=== PATIENT | female | born 1985 | race Caucasian/White ===

== ENCOUNTER 2020-10-16 14:25 | Emergency (ER) | payer OTHER, SELFPAY ==
[2020-10-16 14:27] VITALS: BP 143/94; PULSE 142; RESP 20; TEMP 38.1; O2SAT 96
[2020-10-16] MEDS: ACETAMINOPHEN 500 MG TABLET 1000 MG PO (15:10)
[2020-10-16 15:21] LABS: Add Urine Microscopic? YES; Appearance Urine Cloudy (Clear); Bacteria Urine 2+ /hpf; Bilirubin Urine Negative (Negative); Blood Urine 2+ (Negative); Color Urine Yellow (Yellow); Glucose Urine UA Negative (Negative); Ketones Urine 1+ mg/dL (Negative); Leukocyte Esterase Ur 2+ LEU/UL (Negative); Mucus Urine Heavy /lpf; Nitrate Urine Negative (Negative); Protein Urine 2+ mg/dL (Negative); RBC Urine >75 /hpf (0-2); Specific Grav Ur 1.021 (1.001-1.035); Squamous Epithelial Cell Urine Many /hpf (Few); Urobilinogen Urine Negative mg/dL (<2.0); WBC Clumps Urine Present /HPF; WBC Urine >75 /hpf
--- NOTE | 2020-10-16 16:00 | ED.GENADULT ---
HPI - General Adult General Chief complaint: Unspecified Stated complaint: chills Time Seen by Provider: 10/16/20 14:55 History of Present Illness HPI narrative: Patient is a 34-year-old female who presents ER with chills. Ongoing for last day. She went to get tested for Covid today and her test is currently pending. She has no runny nose/sore throat/productive cough. She does report that she has recently had some cloudy urine. Not particularly having urinary frequency urgency or dysuria. No flank pain. Denies chest pain or chest pressure. Related Data Allergies Allergy/AdvReac Type Severity Reaction Status Date / Time No Known Allergies Allergy Verified 10/16/20 14:30 Review of Systems Review of Systems: All systems reviewed & are unremarkable except as noted in HPI and below Constitutional: Constitutional: Reports chills and Reports fever(s) ENT: Denies nasal discharge, Denies sinus pressure and Denies sore throat Respiratory: Respiratory: Denies cough and Denies dyspnea Genitourinary: Genitourinary: Denies dysuria, Denies flank pain and Denies urinary urgency [facility] Past Medical History Medical History (Updated 10/16/20 @ 17:21 by Damián Gurrola MD) Chronic sinusitis Surgical History Surgical History (Updated 10/16/20 @ 17:20 by Damián Gurrola MD) H/O sinus surgery Hx of tonsillectomy Social History Social History (Updated 06/29/20 @ 16:57 by Anjali Blakely CMA) Smoking status: Never smoker Second hand tobacco smoke exposure: No Alcohol intake: current Substance use: never Substance use type: does not use Exam Narrative: Exam Narrative: GENERAL: Well-appearing, well-nourished, and in no acute distress. HEAD: Normocephalic, atraumatic. CHEST: Clear to auscultation. No respiratory distress. HEART: Tachycardic and regular. Normal peripheral pulses. EXTREMITIES: Normal range of motion. No edema. SKIN: Warm, dry, no rash. NEURO: Alert and oriented x3. PSYCH: Normal mood and affect. Course Course Emergency Course: IV antibiotics IV fluids given. Will treat with Keflex at home. Vital Signs Vital signs: Vital Signs Temperature 100.6 F H 10/16/20 14:27 Pulse Rate 142 H 10/16/20 14:27 Respiratory Rate 20 10/16/20 14:27 Blood Pressure 143/94 H 10/16/20 14:27 Pulse Oximetry 96 10/16/20 14:27 Temperature 100.6 F H 10/16/20 14:27 Pulse Rate 142 H 10/16/20 14:27 Respiratory Rate 20 10/16/20 14:27 Blood Pressure 143/94 H 10/16/20 14:27 Pulse Oximetry 96 10/16/20 14:27 Medical Decision Making Vital Signs Vital Signs: Vital Signs Temperature 100.6 F H 10/16/20 14:27 Pulse Rate 142 H 10/16/20 14:27 Respiratory Rate 20 10/16/20 14:27 Blood Pressure 143/94 H 10/16/20 14:27 Pulse Oximetry 96 10/16/20 14:27 Temperature 100.6 F H 10/16/20 14:27 Pulse Rate 142 H 10/16/20 14:27 Respiratory Rate 20 10/16/20 14:27 Blood Pressure 143/94 H 10/16/20 14:27 Pulse Oximetry 96 10/16/20 14:27 Lab Data Labs: Lab Results 10/16/20 Range/Units 15:08 Urine Color Yellow (Yellow) Urine Appearance Cloudy H (Clear) Urine pH 5.0 (5.0-9.0) Ur Specific [place] 1.021 (1.001-1.035) Urine Protein 2+ H (Negative) mg/dL Urine Glucose (UA) Negative (Negative) mg/dL Urine Ketones 1+ H (Negative) mg/dL Ur Blood (Man) 2+ H (Negative) Urine Nitrate Negative (Negative) Urine Bilirubin Negative (Negative) Urine Urobilinogen Negative (<2.0) mg/dL Leukocyte Esterase Rfl 2+ H (Negative) MABLE/UL Urine RBC >75 H (0-2) /hpf Urine WBC >75 H /hpf Urine WBC Clumps Present H (None) /HPF Ur Squamous Epith Cells Many H (Few) /hpf Urine Bacteria 2+ H /hpf Urine Mucus Heavy H /lpf UCG Bedside Result Negative Reference Range: Negative Discharge Plan Discharge Clinical Impression: UTI (urinary tract infection)
[2020-10-16] MEDS: SODIUM CHLORIDE 0.9% IV 1,000 ML 999 ML IV CONT (16:12)
[2020-10-16 17:44] VITALS: BP 140/80; PULSE 102; RESP 19; O2SAT 100
== END 2020-10-16 17:45 | disposition home or self-care (01) ==
PROVIDERS: Emergency Provider Emergency Medicine; PCP Family Medicine
DX: N39.0 Urinary tract infection, site not specified (principal)
CPT/HCPCS: 81001; 81025; 87077; 87086; 87088; 87186; 96365; 99284; A9270; J0696; J7030

== ENCOUNTER 2020-10-19 12:19 | Outpatient (CLI) | payer OTHER, SELFPAY ==
[2020-10-23 08:29] LABS: Progesterone 0.4 ng/mL (***)
== END 2020-10-19 12:20 | disposition home or self-care (01) ==
PROVIDERS: PCP Family Medicine; Visit Provider Obstetrics & Gynecology
DX: N97.9 Female infertility, unspecified (principal)
CPT/HCPCS: 36415; 84144

== ENCOUNTER 2021-01-10 14:42 | Outpatient (CLI) | payer OTHER, SELFPAY ==
[2021-01-13 13:54] LABS: Progesterone 5.8 ng/mL (***)
== END 2021-01-10 14:43 | disposition home or self-care (01) ==
LOC: ANHLAB 14:47
PROVIDERS: PCP Family Medicine; Visit Provider Advanced Practice Midwife
DX: N97.9 Female infertility, unspecified (principal)
CPT/HCPCS: 36415; 84144

== ENCOUNTER 2021-02-08 12:04 | Outpatient (CLI) | payer OTHER, SELFPAY ==
[2021-02-11 05:49] LABS: Progesterone 12.2 ng/mL (***)
== END 2021-02-08 12:05 | disposition home or self-care (01) ==
PROVIDERS: PCP Family Medicine; Visit Provider Advanced Practice Midwife
DX: N97.9 Female infertility, unspecified (principal)
CPT/HCPCS: 36415; 84144

== ENCOUNTER 2021-04-25 12:19 | Outpatient (CLI) | payer OTHER, SELFPAY ==
[2021-04-28 06:10] LABS: Progesterone 12.8 ng/mL (***)
== END 2021-04-25 12:20 | disposition home or self-care (01) ==
LOC: ANHLAB 12:21
PROVIDERS: PCP Family Medicine; Visit Provider Advanced Practice Midwife
DX: N97.9 Female infertility, unspecified (principal)
CPT/HCPCS: 36415; 84144

== ENCOUNTER 2021-05-24 12:19 | Outpatient (CLI) | payer OTHER, SELFPAY ==
[2021-05-27 06:14] LABS: Progesterone 15.5 ng/mL (***)
== END 2021-05-24 12:20 | disposition home or self-care (01) ==
LOC: ANHLAB 12:23
PROVIDERS: PCP Family Medicine; Visit Provider Advanced Practice Midwife
DX: N97.9 Female infertility, unspecified (principal)
CPT/HCPCS: 36415; 84144

== ENCOUNTER 2021-06-14 11:08 | Outpatient (RCR) | payer OTHER, SELFPAY | END 2021-09-12 23:59 | disposition home or self-care (01) | LOC: ANHLAB 11:08 | PROVIDERS: PCP Family Medicine; Visit Provider Advanced Practice Midwife | DX: N97.9 Female infertility, unspecified (principal) | CPT/HCPCS: 36415; 84702 ==

== ENCOUNTER 2021-08-02 12:03 | Outpatient (CLI) | payer OTHER, BC, SELFPAY ==
[2021-08-02 12:35] LABS: Basophils Absolute Auto 0.1 K/mm3 (0.0-0.1); Basophils Percent Auto 0.7 % (0.2-1.2); Eosinophils Absolute Auto 0.5 K/mm3 (0-0.3); Eosinophils Percent Auto 4.4 % (0-4.4); Hematocrit 36.4 % (37.0-47.0); Hemoglobin 12.1 g/dL (12.0-15.0); Immature Granulocyte Absolute 0.03 K/mm3 (0.00-0.031); Immature Granulocyte Percent A 0.3 % (0-0.5); Lymphocytes Absolute Auto 1.83 K/mm3 (0.9-3.2); Lymphocytes Percent Auto 17.5 % (18.3-44.2); Mean Corpuscular HGB Conc 33.2 g/dl (32-36); Mean Corpuscular Hemoglobin 29.9 pg (26-34); Mean Corpuscular Volume 89.9 fl (80-100); Mean Platelet Volume 10.2 fl (7.4-10.4); Monocytes Absolute Auto 0.5 K/mm3 (0.1-0.6); Neutrophils Absolute Auto 7.6 K/mm3 (1.3-6.7); Neutrophils Percent Auto 72.1 % (45.5-73.1); Platelet Count Result 232 k/mm3 (150-375); Red Blood Count 4.05 M/mm3 (4.2-5.4); Red Cell Distribution Width 15.4 % (11.5-14.5); White Blood Count 10.5 K/mm3 (4.5-10.0)
[2021-08-02 12:50] LABS: Hemoglobin A1C 5.6 % (<5.7)
[2021-08-02 13:26] LABS: HIV 1/2 Ab P24 Ag Result Negative (Negative)
[2021-08-02 14:03] LABS: Hepatitis C Virus Antibody Negative (Negative)
[2021-08-02 14:09] LABS: Hepatitis B Surface Antigen Negative (Negative); Rubella IgG Antibody 63.6 IU/ML
[2021-08-03 09:53] LABS: Rapid Plasma Reagin Non-Reactive (NonReactive)
== END 2021-08-02 12:04 | disposition home or self-care (01) ==
PROVIDERS: PCP Family Medicine; Visit Provider Obstetrics & Gynecology
DX: Z36.89 Encounter for other specified antenatal screening (principal); Z3A.00 Weeks of gestation of pregnancy not specified
CPT/HCPCS: 36415; 83036; 84443; 85025; 86592; 86703; 86762; 86803; 86850; 86900; 86901; 87340; G0432

== ENCOUNTER 2022-01-25 17:07 | Inpatient (IN) | payer OTHER, BC, SELFPAY ==
[2022-01-25] VITALS (20 sets, daily range): BP systolic 125–158; BP diastolic 70–101; PULSE 73–93
[2022-01-25 18:54] LABS: Basophils Percent Auto 0.3 % (0.2-1.2); Eosinophils Absolute Auto 0.2 K/mm3 (0-0.3); Eosinophils Percent Auto 1.6 % (0-4.4); Hematocrit 36.8 % (37.0-47.0); Hemoglobin 12.2 g/dL (12.0-15.0); Immature Granulocyte Absolute 0.04 K/mm3 (0.00-0.031); Immature Granulocyte Percent A 0.4 % (0-0.5); Lymphocytes Absolute Auto 1.52 K/mm3 (0.9-3.2); Lymphocytes Percent Auto 13.4 % (18.3-44.2); Mean Corpuscular HGB Conc 33.2 g/dl (32-36); Mean Corpuscular Volume 96.6 fl (80-100); Mean Platelet Volume 12.6 fl (7.4-10.4); Monocytes Absolute Auto 0.8 K/mm3 (0.1-0.6); Monocytes Percent Auto 6.6 % (2.6-8.5); Neutrophils Absolute Auto 8.8 K/mm3 (1.3-6.7); Neutrophils Percent Auto 77.7 % (45.5-73.1); Platelet Count Result 129 k/mm3 (150-375); Red Blood Count 3.81 M/mm3 (4.2-5.4); Red Cell Distribution Width 13.4 % (11.5-14.5); White Blood Count 11.4 K/mm3 (4.5-10.0)
[2022-01-25 18:59] LABS: Appearance Urine Clear (Clear); Bilirubin Urine Negative (Negative); Blood Urine Negative (Negative); Color Urine Yellow (Yellow); Glucose Urine UA Negative (Negative); Ketones Urine 1+ mg/dL (Negative); Leukocyte Esterase Ur Negative LEU/UL (NEGATIVE); Nitrate Urine Negative (Negative); Protein Urine Trace mg/dL (Negative); Specific Grav Ur 1.025 (1.001-1.035); Urobilinogen Urine 0.2 mg/dL (<2.0); pH Urine 6.5 (5.0-9.0)
[2022-01-25 19:01] LABS: Creatinine Urine 81.6 mg/dL; Total Protein Urine Random 22 mg/dL; Ur Ttl Prot Creatinine Ratio 0.27 mg/mg (0-0.20)
[2022-01-25 19:05] LABS: Alanine Aminotransferase 11 U/L (6-35); Albumin Level 3.5 g/dL (3.5-5.1); Alkaline Phosphatase 145 U/L (38-126); Anion Gap 5 mmol/L (8-16); Aspartate Amino Transferase 20 U/L (14-36); Bilirubin,Total 0.2 mg/dL (0.2-1.3); Blood Urea Nitrogen 10 mg/dL (7-17); Calcium 9.4 mg/dL (8.4-10.2); Carbon Dioxide 21 mmol/L (22-30); Chloride 107 mmol/L (98-107); Estimated Glomerular Filt Rate > 60; Glucose 85 mg/dL (65-110); Potassium 3.9 mmol/L (3.4-5.0); Sodium 133 mmol/L (137-145)
--- NOTE | 2022-01-25 19:09 | PC.NURSE ---
1816- called Junior Morelos CNM- updated on pt status. orders received for labs. will call with results
[2022-01-25 19:15] LABS: Mucus Urine Rare /lpf; RBC Urine 0-2 /hpf (0-2); Squamous Epithelial Cell Urine Few /hpf (Few); WBC Urine 0-3 /hpf (0-3)
[2022-01-25 19:16] LABS: Add Urine Microscopic? YES
--- NOTE | 2022-01-25 21:11 | WPDANESEPP ---
Anes - Eval Pre Procedure Procedure: Labor epidural Date/Time: 01/25/22 21:11 Surgeon: Akosua Preop Diagnosis: Abd pain with contractions Pre Op Diagnosis: Elevated BP Patient Data Age: 36 Gender: F Height: Weight: Last Vital Signs Pulse 74 01/25/22 20:46 BP 148/89 H 01/25/22 20:46 Allergies Allergy/AdvReac Type Severity Reaction Status Date / Time No Known Allergies Allergy Verified 01/06/22 13:37 Home Medications Medication Instructions Recorded Confirmed Type aspirin 81 mg tablet,delayed 81 mg PO DAILY 01/06/22 01/06/22 History release (Avery Low Dose Aspirin) famotidine 10 mg tablet (Pepcid AC) 10 mg PO DAILY 01/06/22 01/06/22 History ferrous sulfate 140 mg (45 mg 140 mg PO DAILY 01/06/22 01/06/22 History iron) tablet,extended release prenat.vits,imani,cfg-mhvz-gezpt 1 tablet PO DAILY 01/06/22 01/06/22 History Laboratory Tests 01/25/22 01/25/22 01/25/22 18:44 18:44 18:44 WBC 11.4 K/mm3 H K/mm3 (4.5-10.0) RBC 3.81 M/mm3 L M/mm3 (4.2-5.4) Hgb 12.2 g/dL g/dL (12.0-15.0) Hct 36.8 % L % (37.0-47.0) MCV 96.6 fl fl (80-100) MCH 32.0 pg pg (26-34) MCHC 33.2 g/dl g/dl (32-36) RDW 13.4 % % (11.5-14.5) Plt Count 129 k/mm3 L k/mm3 (150-375) MPV 12.6 fl H fl (7.4-10.4) Immature Gran % (Auto) 0.4 % % (0-0.5) Neut % (Auto) 77.7 % H % (45.5-73.1) Lymph % (Auto) 13.4 % L % (18.3-44.2) [place] % (Auto) 6.6 % % (2.6-8.5) Eos % (Auto) 1.6 % % (0-4.4) Baso % (Auto) 0.3 % % (0.2-1.2) Lymph # (Auto) 1.52 K/mm3 K/mm3 (0.9-3.2) [place] # (Auto) 0.8 K/mm3 H K/mm3 (0.1-0.6) Eos # (Auto) 0.2 K/mm3 K/mm3 (0-0.3) Baso # (Auto) 0.0 K/mm3 K/mm3 (0.0-0.1) Abs Immat Gran (auto) 0.04 K/mm3 H K/mm3 (0.00-0.031) Absolute Neuts (auto) 8.8 K/mm3 H K/mm3 (1.3-6.7) Absolute Nucleated RBC 0.0 K/mm3 K/mm3 (0.0-0.012) Nucleated RBC % 0.0 % % (0.0-0.2) Sodium Potassium Chloride Carbon Dioxide Anion Gap BUN Creatinine Estim Creat Clear Calc Estimated GFR Glucose Uric Acid Calcium Total Bilirubin AST ALT Alkaline Phosphatase Total Protein Albumin Urine Color Yellow (Yellow) Urine Appearance Clear (Clear) Urine pH 6.5 (5.0-9.0) Ur Specific [place] 1.025 (1.001-1.035) Urine Protein Trace mg/dL mg/dL (Negative) Urine Glucose (UA) Negative mg/dL mg/dL (Negative) Urine Ketones 1+ mg/dL H mg/dL (Negative) Ur Blood (Man) Negative (Negative) Urine Nitrate Negative (Negative) Urine Bilirubin Negative (Negative) Urine Urobilinogen 0.2 mg/dL mg/dL (<2.0) Ur Leukocyte Esterase Negative MABLE/UL MABLE/UL (NEGATIVE) Urine RBC 0-2 /hpf /hpf (0-2) Urine WBC 0-3 /hpf /hpf (0-3) Ur Squamous Epith Cells Few /hpf /hpf (Few) Urine Mucus Rare /lpf /lpf U Random Total Protein 22 mg/dL mg/dL Urine Creatinine 81.6 mg/dL mg/dL Protein/Creat Ratio 2 0.27 mg/mg H mg/mg (0-0.20) 01/25/22 18:44 WBC RBC Hgb Hct MCV MCH MCHC RDW Plt Count MPV Immature Gran % (Auto) Neut % (Auto) Lymph % (Auto) [place] % (Auto) Eos % (Auto) Baso % (Auto) Lymph # (Auto) [place] # (Auto) Eos # (Auto) Baso # (Auto) Abs Immat Gran (auto) Absolute Neuts (auto) Absolute Nucleated RBC Nucleated RBC % So
[2022-01-25] MEDS: DINOPROSTONE 10 MG VAG INSERT VAGINAL (22:01)
[2022-01-26] VITALS (105 sets, daily range): BP systolic 115–172; BP diastolic 60–107; PULSE 76–123; RESP 16; TEMP 36.4–36.9; O2SAT 96–99; BMI 46.9
--- NOTE | 2022-01-26 01:56 | LDADM ---
This patient, Adrianne Ley, was admitted to Labor/Delivery/Recovery 105 on 01/25/22 at 17:07. Plans for labor, pain management and were discussed with patient. Patient/family oriented to hospital policies and general routines including ID bracelet, bed and alarms, visiting hours, pain management, procedures, bathroom and other care routines, personal items, smoking policy, room service/diet and guest tray routines, security routines, and visiting hours. Patient/Family are encouraged to report perceived risks to care and to ask questions if they do not understand what they are told or what they should do. See OBIX for further documentation.
--- NOTE | 2022-01-26 10:41 | WPDOBADMIT ---
Obstetrics - Admit Note Admission Note: record reviewed. No pertinent additions to the history and/or any subsequent changes in the physical findings that are not consistent with the expected course of the were found. medical IOL hx chronic HTN with elevated pressures in the office asymptomatic, labs wnl SVE 3/80/-2 AROM minimal amount of clear odorless fluid anticipate vaginal delivery Additions to the history and/or subsequent changes in the physical findings follow. None.
[2022-01-26] MEDS: LACTATED RINGERS 1,000 ML 125 ML IV CONT (11:14)
[2022-01-26] MEDS: OXYTOCIN 30 UNITS/NS 500 ML 30 UNITS/500 ML BAG 6 UNITS IV CONT (11:14)
[2022-01-26] MEDS: FAMOTIDINE 20 MG TABLET PO (19:00)
[2022-01-26] MEDS: LACTATED RINGERS 1,000 ML 75 ML IV CONT (21:45)
[2022-01-26] MEDS: MAGNESIUM SULF 4 GM/WATER100ML 4 GM/100 ML BAG IVPB (21:45)
[2022-01-26] MEDS: MAGNESIUM SULF 20GM/WATER500ML 500 ML 50 MG IV CONT (22:15)
[2022-01-26] MEDS: ONDANSETRON INJ 4 MG/2 ML VIAL IV PUSH (23:14)
[2022-01-27] VITALS (288 sets, daily range): BP systolic 94–159; BP diastolic 41–104; PULSE 71–167; RESP 16–22; TEMP 35.5–36.8; O2SAT 88–100
[2022-01-27] MEDS: AMPICILLIN 2 GM/NS 100 ML 2 GM/100 ML BAG IVPB (06:00)
--- NOTE | 2022-01-27 07:37 | PM.IMHP ---
H&P: HPI History of Present Illness Date/Time: 01/27/22 07:37 Chief Complaint: IOL, CHTN, preeclampsia, on magnesium sulfate, denies any complaints of meyer, epigastric pain, visual changes, comfortable with epidural Review of Systems Review of Systems: All systems reviewed & are unremarkable except as noted in HPI and below PMFSH Past Medical History Medical History Chronic sinusitis Gestational HTN Morbid obesity and not yet delivered Surgical History Surgical History H/O sinus surgery Hx of tonsillectomy Family History Family History Mother Diabetes mellitus Kidney disease, chronic, stage I (GFR over 89 ml/min) Sibling Diabetes mellitus Social History Social History Smoking status: Never smoker Second hand tobacco smoke exposure: No Alcohol intake: current Substance use: never Substance use type: does not use Spiritual care concerns: No Meds Home Medications and Allergies Home Medications Medication Instructions Recorded Confirmed Type aspirin 81 mg tablet,delayed 81 mg PO DAILY 01/06/22 01/06/22 History release (Avery Low Dose Aspirin) famotidine 10 mg tablet (Pepcid AC) 10 mg PO DAILY 01/06/22 01/06/22 History ferrous sulfate 140 mg (45 mg 140 mg PO DAILY 01/06/22 01/06/22 History iron) tablet,extended release prenat.vits,imani,aai-mpzt-blins 1 tablet PO DAILY 01/06/22 01/06/22 History Allergies Allergy/AdvReac Type Severity Reaction Status Date / Time No Known Allergies Allergy Verified 01/06/22 13:37 Vital Signs Vital Signs - 24 hr 01/26/22 09:10 01/26/22 09:16 01/26/22 09:31 Temperature 36.6 C Pulse Rate 85 85 Respiratory Rate Blood Pressure 160/107 H 126/92 H Pulse Oximetry 01/26/22 09:46 01/26/22 10:01 01/26/22 10:40 Temperature Pulse Rate 88 91 94 Respiratory Rate Blood Pressure 139/90 143/85 H 152/93 H Pulse Oximetry 01/26/22 10:46 01/26/22 11:01 01/26/22 11:16 Temperature Pulse Rate 91 87 83 Respiratory Rate Blood Pressure 137/73 147/83 H 143/83 H Pulse Oximetry 01/26/22 11:31 01/26/22 11:46 01/26/22 12:01 Temperature Pulse Rate 99 96 99 Respiratory Rate Blood Pressure 146/89 H 140/88 158/99 H Pulse Oximetry 01/26/22 12:16 01/26/22 12:31 01/26/22 12:46 Temperature Pulse Rate 100 96 95 Respiratory Rate Blood Pressure 143/96 H 161/95 H 145/98 H Pulse Oximetry 01/26/22 13:01 01/26/22 13:16 01/26/22 13:46 Temperature Pulse Rate 91 96 89 Respiratory Rate Blood Pressure 148/92 H 147/101 H 150/94 H Pulse Oximetry 01/26/22 14:01 01/26/22 11:00 01/26/22 13:00 Temperature 36.5 C 36.6 C Pulse Rate 91 Respiratory Rate Blood Pressure 144/91 H Pulse Oximetry 01/26/22 14:46 01/26/22 15:01 01/26/22 15:16 Temperature Pulse Rate 95 87 88 Respiratory Rate Blood Pressure 152/97 H 149/88 H 145/90 H Pulse Oximetry 01/26/22 15:31 01/26/22 15:46 01/26/22 16:01 Temperature Pulse Rate 76 84 91 Respiratory Rate Blood Pressure 147/88 H 150/95 H 151/88 H Pulse Oximetry 01/26/22 16:16 01/26/22 16:31 01/26/22 17:01 Temperature Pulse Rate 92 84 86 Respiratory Rate Blood Pressure 154/105 H 153/84 H 149/88 H Pulse Oximetry 01/26/22 17:16 01/26/22 15:00 01/26/22 17:00 Temperature 36.4 C L 36.6 C Pulse Rate 92 Respiratory Rate Blood Pressure 148/92 H Pulse Oximetry 01/26/22 17:31 01/26/22 17:46 01/26/22 18:01 Temperature Pulse Rate 93 95 102 H Respiratory Rate Blood Pressure 152/91 H 150/90 H 137/92 H Pulse Oximetry 01/26/22 18:16 01/26/22 18:18 01/26/22 18:23 Temperature Pulse Rate 94 Respiratory Rate Blood Pressure 155/96 H Pulse Oximetry 98 98
[2022-01-27] MEDS: MAGNESIUM SULF 20GM/WATER500ML 500 ML 50 MG IV CONT ×2 (08:01→18:28)
[2022-01-27] MEDS: AMPICILLIN 1 GM/NS 50 ML 1 GM/50 ML BAG IVPB ×2 (10:00→14:00)
[2022-01-27] MEDS: OXYTOCIN 30 UNITS/NS 500 ML 30 UNITS/500 ML BAG 6 UNITS IV CONT (11:11)
--- NOTE | 2022-01-27 12:04 | PM.OBPNLAB ---
Pain Control Date/time seen: 01/27/22 12:04 superimposed preeclampsia, pt comfortable with epidural, No cervical change, FHR category 1, Assessment and Plan Comments: 1. at 38.1 weeks gestation with superimposed preeclampsia, failure to progress, discussed with pt and pt would like to continue for a few more hours if FHR maintains category 1 status, will consult dr. fuentes
[2022-01-27] MEDS: CALCIUM CARBONATE (TUMS) 500 MG (200 MG ELEMENTAL) 400 MG PO (12:51)
--- NOTE | 2022-01-27 16:53 | WPDHPUPDATE1 ---
History and Physical Update Update Date/Time: 01/27/22 16:53 History and Physical has been reviewed, including an updated exam of the patient. There are NO changes in the patient's condition. Risks, benefits, and alternatives have been discussed and questions answered. Patient agrees to proceed with procedure. CS for FTP 5-6cm for about 12 hours. irving.
[2022-01-27] MEDS: ceFAZolin 3 GM/D5W 100 ML 100 ML IVPB (17:05)
--- NOTE | 2022-01-27 18:08 | P.PCNOB_ITS ---
OB - Delivery Note Procedure Delivery date: 01/27/22 Procedure: Procedures Operation Date: 01/27/22 17:00 <No data on this case meets the specified criteria> Primary low transverse section Events: Preeclampsia w severe features Intrapartal Events: Arrest of Dilation and Failed Induction of Labor Induction method: AROM, Per Pitocin Protocol and Per Cervidil Protocol Delivery monitor: Internal FHT and Internal Uterine Route of delivery: Prior to decision for section, ACOG/SMFM labor guidelines were considered and discussed with the patient and staff. Decision made to proceed with the section.: Yes Specimen: Yes (placenta) Quantitative Blood Loss (ml): 1,060 Anesthesia type: Epidural Disposition: Floor Complications: none Narrative: The patient was taken to the OR and received spinal anesthesia. She was placed in dorsal supine position with left lateral tilt. SCDs and martinez were placed. She was prepped and draped in the normal sterile fashion. A Pfannensteil skin incision was made and carried through to the underlying layer of fascia. The fascia was incised in the midline and then extended laterally using Lomeli scissors. The muscles were in the midline and the peritoneum was entered bluntly. The peritoneal incision was extended inferiorly and superiorly with care to avoid the bladder. The bladder blade was then inserted, the vesicouterine peritoneum was grasped, incised with Metzenbaum scissors, and a bladder flap created. The bladder blade was reinserted. A low transverse uterine incision was made with a scalpel and extended bluntly. An anterior placenta was encountered. No obvious amniotic fluid noted. The head was delivered, followed by the remainder of the baby. The baby's oropharynx was suctioned. After 30 seconds, the cord was clamped and cut and the infant was handed off. Cord blood was obtained and the placenta was then removed manually. The uterus was exteriorized. A moist lap sponge was used to curette the endometrium. The uterine incision was then closed with two layers of 0-Vicryl in a running, locking fashion. Good hemostasis was noted. The posterior cul de sac was irrigated with normal saline and cleared of all clot and debris. The uterus was returned to the abdomen. Both lateral gutters were then irrigated. The rectus muscles were inspected and found to be hemostatic. The fascia was reapproximated using 0-Vicryl in running fashion. The subcutaneous tissue was irrigated with normal saline and made hemostatic with Bovie electrocautery. The subcutaneous tissue was reapproximated with a layer of running 2-0 plain gut. The skin was then closed with absorbable jyoti. Steri strips and a bandage were applied. The uterus was evacuated. The patient tolerated the procedure very well. All counts were correct. She was taken to the recovery room in good condition. [place] Baby Date of : 01/27/22 Time of : 17:28 Weeks of gestation at delivery: 38 Infant gender: Male Weight (pounds): 6 Weight (ounces): 15 presentation: vertex Placenta delivery description: Manual Removal Cord Vessel Description: 3 Vessels and Delayed Cord Clamping score one minute: 8 score five minutes: 9
--- NOTE | 2022-01-27 20:40 | OBPPTRN ---
Patient transferred to post room #291 via stretcher. Support person present. Oriented to unit, room, information board, rooming in, admission packet and security measures. Patient verbalizes understanding.
[2022-01-27] MEDS: DEXTROSE 5%/0.45% SOD CHL 1,000 ML 75 ML IV CONT (23:45)
[2022-01-28] VITALS: BP 150/99; PULSE 89; RESP 20; TEMP 36.5
[2022-01-28] MEDS: IBUPROFEN 600 MG TABLET PO ×2 (03:50→18:50)
[2022-01-28 03:59] VITALS: BP 126/80; PULSE 82; RESP 20; TEMP 36.8
[2022-01-28] MEDS: MAGNESIUM SULF 20GM/WATER500ML 500 ML 50 MG IV CONT ×2 (04:44→14:55)
[2022-01-28 05:05] LABS: Basophils Absolute Auto 0.1 K/mm3 (0.0-0.1); Basophils Percent Auto 0.4 % (0.2-1.2); Eosinophils Absolute Auto 0.1 K/mm3 (0-0.3); Eosinophils Percent Auto 0.7 % (0-4.4); Hematocrit 29.2 % (37.0-47.0); Hemoglobin 9.6 g/dL (12.0-15.0); Immature Granulocyte Absolute 0.09 K/mm3 (0.00-0.031); Immature Granulocyte Percent A 0.5 % (0-0.5); Lymphocytes Absolute Auto 1.61 K/mm3 (0.9-3.2); Lymphocytes Percent Auto 8.9 % (18.3-44.2); Mean Corpuscular HGB Conc 32.9 g/dl (32-36); Mean Corpuscular Hemoglobin 31.6 pg (26-34); Mean Corpuscular Volume 96.1 fl (80-100); Mean Platelet Volume 12.7 fl (7.4-10.4); Monocytes Absolute Auto 1.3 K/mm3 (0.1-0.6); Monocytes Percent Auto 7.3 % (2.6-8.5); Neutrophils Percent Auto 82.2 % (45.5-73.1); Platelet Count Result 119 k/mm3 (150-375); Red Blood Count 3.04 M/mm3 (4.2-5.4); Red Cell Distribution Width 13.6 % (11.5-14.5); White Blood Count 18.2 K/mm3 (4.5-10.0)
--- NOTE | 2022-01-28 06:16 | P.PNOB_ITS ---
OB - PN: Subj Subjective Date/time seen: 01/28/22 06:16 Patient comments: no complaints baby status: doing well and nursing well [place] feeding status: exclusively breast feeding Narrative: POD 1 from primary CS. Doing well. Normal lochia. Eating, ambulating, martinez out. BPs since delivery 126-150/80-99, most 130s/80s. Mag on. UOP 1000cc/6hrs. Denies REDDY/BV/EP. OB - PN: Obj Data Labs CBC & Chem 7: 01/28/22 03:49 01/25/22 18:44 Labs: Laboratory Results - last 24 hr 01/28/22 03:49 WBC 18.2 H RBC 3.04 L Hgb 9.6 L Hct 29.2 L MCV 96.1 MCH 31.6 MCHC 32.9 RDW 13.6 Plt Count 119 L MPV 12.7 H Immature Gran % (Auto) 0.5 Neut % (Auto) 82.2 H Lymph % (Auto) 8.9 L [place] % (Auto) 7.3 Eos % (Auto) 0.7 Baso % (Auto) 0.4 Lymph # (Auto) 1.61 [place] # (Auto) 1.3 H Eos # (Auto) 0.1 Baso # (Auto) 0.1 Abs Immat Gran (auto) 0.09 H Absolute Neuts (auto) 15.0 H Absolute Nucleated RBC 0.0 Nucleated RBC % 0.0 OB - PN A/P Assessment and Plan (1) Pre-eclampsia added to pre-existing hypertension: Code(s): O11.9 - Pre-existing hypertension with pre-eclampsia, unspecified trimester Status: Acute (2) delivery delivered: Code(s): O82 - Encounter for delivery without indication Status: Acute Plan day: 1 Plan: routine care Comments: mag until 24hours. discussed possible antihypertensives after mag off, will monitor BPs Time Spent With Patient Time: Total time spent is greater than 50% in coordination of care (as documented) at patient's floor/unit and/or counseling patient: Exam Narrative: NAD abdomen soft, appropriately tender, incision bandaged Extremities nontender with 1+ edema
[2022-01-28 07:45] VITALS: BP 119/78; PULSE 78; RESP 16; TEMP 36.2; O2SAT 99
[2022-01-28] MEDS: DOCUSATE SODIUM 100 MG CAPSULE PO ×2 (09:00→18:50)
[2022-01-28] MEDS: POLYSACCHARIDE IRON COMPLEX 150 MG CAPSULE PO ×2 (09:00→18:50)
[2022-01-28] MEDS: MULTIVIT/MIN/PREN/FOL AC/IRON TABLET 1 TAB PO (09:00)
--- NOTE | 2022-01-28 12:20 | WPDANLDPN2 ---
Anes-Prog Note L&D Date/Time: 01/28/22 12:20 Comfortable throughout: labor and section Neuraxial method: epidural Epidural/Spinal procedure site: clean & non-tender Neuro status: Neuro function grossly intact. Cardiovascular status: normal Respiratory status: normal Airway patency: baseline Mental status: baseline Post-Op hydration status: normal Vital Signs: Last Vital Signs Temp 98.2 F 01/28/22 03:59 Pulse 82 01/28/22 03:59 Resp 20 01/28/22 03:59 BP 126/80 01/28/22 03:59 Pulse Ox 100 01/27/22 20:29 O2 Del Method Room Air 01/28/22 03:59 Pain score (VAS): 4 I/O: Intake & Output 01/27/22 01/28/22 01/28/22 23:59 07:59 15:59 Intake Total 500 1200 Output Total 375 1000 Balance 125 200 Patient feedback: Patient satisfied with anesthetic care.
--- NOTE | 2022-01-28 12:20 | WPDANLDNPN2 ---
Anes-Prog Note L&D-Neuraxial Date/Time: 01/28/22 12:20 Neuraxial medications: epidural PF morphine Opiod-related complaints: none Patient feedback: Patient satisfied with post-operative pain management.
[2022-01-28] MEDS: KCL 20 MEQ/D5/0.45% SOD CHL 1,000 ML 75 ML IV CONT (12:50)
[2022-01-28 13:18] VITALS: BP 120/76; PULSE 78; PULSE 86; RESP 16; RESP 18; TEMP 37.4; O2SAT 98; O2SAT 99
[2022-01-28 17:45] VITALS: BP 141/84; PULSE 78; PULSE 92; RESP 16; RESP 18; TEMP 36.8; O2SAT 99
[2022-01-28] MEDS: HYDROcodone/acetaminophen (*CRX) 5-325 MG TABLET 1 TAB PO (18:50)
[2022-01-28 19:00] VITALS: BP 143/91; PULSE 100; RESP 16; TEMP 37.2; O2SAT 99
--- NOTE | 2022-01-28 21:25 | PC.NURSE ---
01/28/2022 at 2039 Patient states she no longer is having any visual disturbances. Patient states she was having difficulty while on the Magnesium Sulfate reading the fine print on the television.
[2022-01-29 04:15] VITALS: BP 142/79; PULSE 93; RESP 18; TEMP 36.5; O2SAT 99
[2022-01-29 08:00] VITALS: BP 134/84; PULSE 93; PULSE 99; RESP 18; RESP 20; TEMP 36.6; O2SAT 99
[2022-01-29] MEDS: SIMETHICONE 80 MG TAB.CHEW PO ×2 (08:00→17:32)
[2022-01-29] MEDS: MULTIVIT/MIN/PREN/FOL AC/IRON TABLET 1 TAB PO (08:00)
[2022-01-29] MEDS: IBUPROFEN 600 MG TABLET PO ×2 (08:00→17:33)
[2022-01-29] MEDS: DOCUSATE SODIUM 100 MG CAPSULE PO ×2 (08:00→17:33)
[2022-01-29] MEDS: HYDROcodone/acetaminophen (*CRX) 5-325 MG TABLET 1 TAB PO ×2 (08:00→17:33)
[2022-01-29] MEDS: POLYSACCHARIDE IRON COMPLEX 150 MG CAPSULE PO ×2 (08:00→17:33)
--- NOTE | 2022-01-29 11:41 | PM.OBPNVD ---
OB - PN: Subj Subjective Date/time seen: 01/29/22 11:41 Patient comments: no complaints and pain well controlled baby status: doing well [place] feeding status: breast and bottle feeding Narrative: BPs 130ss-140s/79-91 since mag off. denies sx. OB - PN: Obj Data Labs CBC & Chem 7: 01/28/22 03:49 01/25/22 18:44 OB - PN A/P Plan day: 2 Plan: routine care Comments: DC home tomorrow if BPs stable. Time Spent With Patient Time: Total time spent is greater than 50% in coordination of care (as documented) at patient's floor/unit and/or counseling patient: Exam Narrative: NAD abdomen soft, appropriately tender, incision CDI Extremities nontender with 1+ edema
[2022-01-29 12:30] VITALS: BP 140/88; PULSE 80
[2022-01-29 15:40] VITALS: BP 140/91; PULSE 93; RESP 20; TEMP 36.4; O2SAT 98
[2022-01-29 19:05] VITALS: BP 143/79; PULSE 99; RESP 18; TEMP 37.2; O2SAT 98
[2022-01-29 23:35] VITALS: BP 138/91; PULSE 89; RESP 18; TEMP 36.1; O2SAT 98
[2022-01-30 03:45] VITALS: BP 148/92; PULSE 94; RESP 18; TEMP 36.5; O2SAT 99
--- NOTE | 2022-01-30 07:02 | PM.OBPNVD ---
OB - PN: Subj Subjective Date/time seen: 01/30/22 07:02 Patient comments: no complaints and pain well controlled baby status: doing well [place] feeding status: breast and bottle feeding Narrative: BPs 130s-140s/80s-90s. Denies REDDY/BV/EP. WOuld like to go home today. OB - PN: Obj Data Labs CBC & Chem 7: 01/28/22 03:49 01/25/22 18:44 OB - PN A/P Plan day: 3 Plan: discharge home Comments: Doing well, BPs only mildly elevated. Home with BP check in 4 days. Time Spent With Patient Time: Total time spent is greater than 50% in coordination of care (as documented) at patient's floor/unit and/or counseling patient: Exam Narrative: NAD abdomen soft, appropriately tender, incision CDI Extremities nontender with 1+ edema
--- NOTE | 2022-01-30 07:06 | PM.DS ---
DS: Admitting Diagnosis Discharge Date 01/30/22 Admitting Diagnosis chronic HTN with superimposed PreE at term DS: Discharge Diagnosis Discharge Diagnosis (1) delivery delivered: Code(s): O82 - Encounter for delivery without indication Status: Acute (2) Pre-eclampsia added to pre-existing hypertension: Code(s): O11.9 - Pre-existing hypertension with pre-eclampsia, unspecified trimester Status: Acute DS: Summary Hospital Course Hospital Course: Adrianne was admitted for IOL due to cHTN with super imposed PreE. She received magnesium sulfate for seizure prophylaxis and was induced with cervidil and pitocin. She had failure to progress in labor and had a primary section. Her recovery was uncomplicated, her BPs remained only mildly elevated after delivery without medication. She was DCed home on POD 3. Status at Discharge Functional status at discharge: independent ambulation Time Spent with Patient Time attestation: Total time spent providing and/or coordinating discharge services: Exam Narrative: NAD abdomen soft, appropriately tender, incision CDI DS: Data Data Completed and Pending Pending studies at discharge: Pending at discharge 01/27/22 17:29 Surgical [PTH] Routine Discharge Plan Discharge Attending physician on discharge: Inez Hawk Discharging Clinician: Inez Hawk Anticipated Discharge Date/Time: 01/30/22 11:00 Patient Disposition: Home, Self-Care Activity: may shower, may drive after 2 weeks and pelvic rest Diet: regular Patient Instructions: Antibiotic Form Stand Alone Forms: General Discharge Information Follow-up/Referrals: Talisha Morelos CNM [Certified Nurse Electrical Engineering Technician] - 1 Week (4 days) Discharge Medications: New hydrocodone-acetaminophen 5-325 mg Tablet 1 tablet PO Q4-5H PRN (Reason: Moderate Pain (4-6)) Qty: 30 0RF docusate sodium 100 mg Capsule 100 mg PO BID PRN (Reason: constipation) Qty: 60 0RF ibuprofen 600 mg Tablet 600 mg PO Q6H PRN (Reason: Cramping) Qty: 60 0RF Continued aspirin [Avery Low Dose Aspirin] 81 mg Tablet,Delayed Release (Dr/Ec) 81 mg PO DAILY #2 Tablet 1 tablet PO DAILY ferrous sulfate 140 mg (45 mg iron) Tablet Extended Release 140 mg PO DAILY Discontinued famotidine [Pepcid AC] 10 mg Tablet 10 mg PO DAILY Date of admission: 01/25/22 17:07 Primary Care Provider: [place],[facility] Admitting Provider: Valerie South Attending physician on admission: Valerie South Condition: Stable
[2022-01-30 07:40] VITALS: BP 143/92; PULSE 96; RESP 18; TEMP 36.8; O2SAT 98
[2022-01-30] MEDS: MULTIVIT/MIN/PREN/FOL AC/IRON TABLET 1 TAB PO (08:28)
[2022-01-30] MEDS: POLYSACCHARIDE IRON COMPLEX 150 MG CAPSULE PO (08:28)
[2022-01-30] MEDS: HYDROcodone/acetaminophen (*CRX) 5-325 MG TABLET 1 TAB PO (08:29)
[2022-01-30] MEDS: IBUPROFEN 600 MG TABLET PO (08:29)
--- NOTE | 2022-01-30 11:48 | PC.NURSE ---
1137 Patient stated she will view the discharge video Mother & Baby Care, The First Two Weeks at home. Patient was given the opportunity and encouraged to ask questions. Patient verbalized understanding of information shared and has been given the mother/baby guide for home reference.
--- NOTE | 2022-01-30 15:22 | PC.NURSE ---
1209 - Primary RN reported patient went home with a pump/feeding plan.
== END 2022-01-30 11:37 | disposition home or self-care (01) | DRG 788 ==
LOC: ANHOBOP 18:22 → ANHLDR 18:24 → ANHOBOP 20:26 → ANHLDR 20:52 → ANHOB2 01-30 07:06 → ANHLDR 02-01 09:19 → ANHOB2 02-01 09:19
PROVIDERS: Advanced Practice Midwife; Admitting Provider Obstetrics & Gynecology; PCP Family Medicine; Visit Provider Obstetrics & Gynecology
PROC: 10D00Z1 Extraction of Products of Conception, Low, Open Approach (ICD-10-PCS; CPT 59514; principal; 2022-01-27 17:00)
DX: O11.4 Pre-existing hypertension with pre-eclampsia, complicating childbirth (principal); O99.214 Obesity complicating childbirth; E66.01 Morbid (severe) obesity due to excess calories; Z3A.38 38 weeks gestation of pregnancy; Z37.0 Single live birth; O62.0 Primary inadequate contractions; O61.9 Failed induction of labor, unspecified
CPT/HCPCS: 36415; 80053; 81001; 82570; 84156; 84550; 85025; 87086; 88307; A9270; J0290; J0456; J0690; J2274; J2405; J2590; J2795; J3475; J3480; J7120

== ENCOUNTER 2022-02-06 11:46 | Outpatient (RCR) | payer OTHER, BC, SELFPAY ==
--- NOTE | 2022-02-06 13:25 | PC.NURSE ---
In- 1146 Out- 1304 Reason for visit: Latch issues History: Patient was brought in for MIL on 01/26. (Cervidil, AROM, Pitocin, and epidural) Arrest of dilation and failed induction of labor led to decision for a C/S. Marginal cord insertion noted, prolong ROM X3, and QBL of 1,060 mls. Preeclampsia led to Magnesium Sulfate post . Medical history includes Chronic sinusitis (Hx sinus surgery and tonsillectomy), GHTN, morbid obesity, and infertility. History: Born 01/27/2020 at 1728 C/S 3140g 50.8 cm Apgars 8/9 at 38 EGA. Separation related to C/S. latch difficulties after delivery, nipple shield use, and initiated supplementing with formula 01/29 at 0001 per provider order. Mother has been attempting to latch to the breast every 3 hours and states gets frustrated after 5 minutes, then mother moves to bottle feed with expressed breast milk and formula. Observations: Infant is easy to wake with skin to skin, rooting began and mother attempted to latch cross cradle and the latch was shallow and less than 90 degrees. RN suggested using football position and attempted 2-3 times before achieving an optimal latch using the football position. Infant breastfed on each breast 15-20 each. Infant latched deeper on the left than the right. Mother worked well with her and encouraged bringing infant close to her body with big,open, wide gape, asymmetrical latch with chin buried and nose near the breast. Mother denies any discomfort with the latch and infant detaches after each breastfeed finishing content with relaxed hands. weight: 7-8.3 Lowest weight: 6-13.2 Last weight: 7-8 at [facility] office Pre-feed weight: Post-feed weight: 7-12 Plan of Care: Mother encouraged to practice optimal latching and positioning with football at home. Encouraged deep latching watching for swallowing, compression and massaging the breast as breastfeeds. Encouraged mother to breastfeed every 2-3 hours if infant is demonstrating feeding cues and not to pacify infant to 3 hours. 8-12 times in a 24 hour period, or pumping at least 8 times in 24 hours (1-2 times at night), and feeding infant the bottle if feedings do not go well. Measured mother for proper breast pump flange size and mother will order flange size 21 mm. Follow up plans: There is a follow up appt 02/07 at noon for a weight before and after a breastfeed assessing how the last 24 hours went at home. Mother voiced understanding of information, when to call the correctional supervisor, and all questions answered at this time.
--- NOTE | 2022-02-07 15:18 | PC.NURSE ---
1156 - Mother came back to the hospital to work on latching . Inquired how the last 24 hours had gone mother states she pretty much pumped and fed because became frustrated . Worked with latching using football positioning on the right breast. Infant breastfed for 10 min, then detached. Pre weight feed was 3565g. Post weight feed was 3575g. Attempted to latch infant on the left breast with no effective latch or effective . appears to be on a latch strike and makes no effort to latch with big, open, wide gape. Infant gives a small mouth opening or closes his eyes and makes no efforts. After working with for 30 minutes with only 10 mls of breastmilk transferred mother will supplement with pumped breastmilk and formula. Mother has a 21mm flange that will be mailed to her home in the next couple of days. Mother plans to work with , pumping to feed breastmilk, and supplementing with formula. She was encouraged to call for additional assistance and voiced understanding of when to call the [facility].
== END 2022-04-12 09:15 | disposition home or self-care (01) ==
LOC: ANHOBOP 11:46
PROVIDERS: PCP Family Medicine; Visit Provider Pediatrics
DX: Z39.1 Encounter for care and examination of lactating mother (principal)
CPT/HCPCS: 99213; G0463